=== PATIENT | male | born 1975 | race Hispanic/Latino ===

== ENCOUNTER 2018-04-30 17:17 | Observation (INO) | payer OTHER ==
--- OUTSIDE RECORDS SUMMARY | 2018-04-30 17:20 | XMS REPORT | Clinical Summary ---
:1975 Author Organization [facility] Address [address] [place] [address] Care Team Providers Name Role Phone Jackie Primary Care Provider Allergies No Known Allergies Medications No known medications Active Problems Problem Noted Date Acute hypoxemic respiratory failure 02/18/2016 Social History Tobacco Use Types Packs/Day Years Used Date Never Smoker Sex Assigned at Date Recorded Not on file Job Start Date Occupation Industry Not on file Not on file Not on file Travel History Travel Start Travel End No recent travel history available. Last Filed Vital Signs Not on file Plan of Treatment Not on file Results Not on fileafter 04/29/2017 Insurance Payer Benefit Plan / Group Subscriber ID Type Phone Address [employer] - MEDICARE MGD [employer] GOLD CHOICE xxxxxxxxx Maps Contracted CARE PFFS Advance Directives For more information, please contact:[address] [phone] Code Status Date Activated Date Inactivated Comments Full Code 02/18/2016 9:50 AM 03/03/2016 12:46 PM This code status was determined by: Person holding Power of Closer On Full Code 02/18/2016 8:57 AM 02/18/2016 9:50 AM This code status was determined by: Patient
--- NOTE | 2018-04-30 17:44 | EDPHYS ---
Physician Documentation [facility] Name: Moises Addison Jr Age: 42 yrs Sex: Male : 1975 Arrival Date: 04/30/2018 Time: 17:20 Bed 4 Private MD: Luis Monsalve R ED Physician Domenico Avina HPI: 04/30 17:35 This 42 yrs old Male presents to ER via Unassigned with complaints of Chest radha Pain. 17:35 The patient or guardian reports chest pain that is located primarily in the anterior radha chest wall, right. Onset: today. The pain radiates to Associated signs and symptoms: The patient has no apparent associated signs or symptoms. The chest pain is described as a pressure. Duration: The patient or guardian reports multiple episodes, that wax and wane, with no pattern. Severity of pain: At its worst the pain was mild moderate in the emergency department the pain has improved moderately. The patient has not experienced similar symptoms in the past. Historical: - Allergies: 17:37 No Known Allergies; sg - PMHx: 17:37 Anxiety; Depression; Hypertension; Schizophrenia; Suicide Attempts; sg - Immunization history:: Adult Immunizations up to date. - Social history:: Smoking status: Patient/guardian denies using tobacco. - Family history:: not pertinent. - Ebola Screening: : Patient negative for fever greater than or equal to 101.5 degrees Fahrenheit, and additional compatible Ebola Virus Disease symptoms Patient denies exposure to infectious person Patient denies travel to an Ebola-affected area in the 21 days before illness onset No symptoms or risks identified at this time. ROS: 17:35 Constitutional: Negative for fever, chills, and weight loss, Eyes: Negative for injury, radha pain, redness, and discharge, ENT: Negative for injury, pain, and discharge, Neck: Negative for injury, pain, and swelling, Respiratory: Negative for shortness of breath, cough, wheezing, and pleuritic chest pain, Abdomen/GI: Negative for abdominal pain, nausea, vomiting, diarrhea, and constipation, Back: Negative for injury and pain, : Negative for injury, bleeding, discharge, and swelling, MS/Extremity: Negative for injury and deformity, Skin: Negative for injury, rash, and discoloration, Neuro: Negative for headache, weakness, numbness, tingling, and seizure, Psych: Negative for depression, anxiety, suicide ideation, homicidal ideation, and hallucinations, Allergy/Immunology: Negative for hives, rash, and allergies, Endocrine: Negative for neck swelling, polydipsia, polyuria, polyphagia, and marked weight changes, Hematologic/Lymphatic: Negative for swollen nodes, abnormal bleeding, and unusual bruising. 17:35 Cardiovascular: Positive for chest pain, of the right clavicle and anterior aspect of right upper chest. Exam: 17:35 Constitutional: This is a well developed, well nourished patient who is awake, alert, radha and in no acute distress. Head/Face: Normocephalic, atraumatic. Eyes: Pupils equal round and reactive to light, extra-ocular motions intact. Lids and lashes normal. Conjunctiva and sclera are non-icteric and not injected. Cornea within normal limits. Periorbital areas with no swelling, redness, or edema. ENT: Nares patent. No nasal discharge, no septal abnormalities noted. Tympanic membranes are normal and external auditory canals are clear. Oropharynx with no redness, swelling, or masses, exudates, or evidence of obstruction, uvula midline. Mucous membranes moist. Neck: Trachea midline, no thyromegaly or masses palpated, and no cervical lymphadenopathy. Supple, full range of motion without nuchal rigidity, or vertebral point tenderness. No Meningismus. Chest/axilla: Normal chest wall appearance and motion. Nontender with no deformity. No lesions are appreciated. Respiratory: Lungs have equal breath sounds bilaterally, clear to auscultation and percussion. No rales, rhonchi or wheezes noted. No increased work of breathing, no retractions or nasal flaring. Abdomen/GI: Soft, non-tender, with normal bowel sounds. No distension or tympany. No guarding or rebound. No evidence of tenderness throughout. Back: No spinal tenderness. No costovertebral tenderness. Full range of motion. Male : Normal genitalia with no discharge or lesions. Skin: Warm, dry with normal turgor. Normal color with no rashes, no lesions, and no evidence of cellulitis. MS/ Extremity: Pulses equal, no cyanosis. Neurovascular intact. Full, normal range of motion. Neuro: Awake and alert, GCS 15, oriented to person, place, time, and situation. Cranial nerves II-XII grossly intact. Motor strength 5/5 in all extremities. Sensory grossly intact. Cerebellar exam normal. Normal gait. Psych: Awake, alert, with orientation to person, place and time. Behavior, mood, and affect are within normal limits. 17:35 Cardiovascular: Exam negative for Rate: normal, Rhythm: regular, Pulses: Pulses are 4+ in bilateral radial, brachial, femoral, popliteal, posterior tibial and and dorsalis pedis arteries.. Heart sounds: normal, Edema: is not appreciated, JVD: is not appreciated. Vital Signs: 17:34 BP 149 / 87; Pulse 74; Resp 17; Temp 98.4; Pulse Ox 94% on R/A; Pain 10/10; sg 18:28 BP 149 / 91; Pulse 69; Resp 18; Pulse Ox 94% on R/A; Pain 5/10; ph 19:04 Weight 156.49 kg (R); dh3 19:05 BP 128 / 79; Pulse 60; Resp 18; Pulse Ox 96% on R/A; aj1 20:45 BP 151 / 88; Pulse 63; Resp 18; Pulse Ox 97% on R/A; aj1 MDM: 17:28 Patient medically screened. [facility] 17:40 Data reviewed: vital signs, nurses notes, lab test result(s), EKG, radiologic studies, [facility] CT scan, plain films. 17:40 Patient medically screened. [facility] 04/30 17:35 Order name: Basic Metabolic Panel [facility] 04/30 17:35 Order name: CBC with Diff [facility] 04/30 17:35 Order name: LFT's [facility] 04/30 17:35 Order name: Magnesium [facility] 04/30 17:35 Order name: NT PRO-BNP [facility] 04/30 17:35 Order name: PT-INR [facility] 04/30 17:35 Order name: Troponin (emerg Dept Use Only) [facility] 04/30 17:35 Order name: Lipase [facility] 04/30 18:11 Order name: Protime (+INR); Complete Time: 18:12 [facility] 04/30 18:12 Order name: CBC with Automated Diff; Complete Time: 18:42 [facility] 04/30 18:32 Order name: Urine Dipstick--Ancillary (enter results) 04/30 18:52 Order name: Basic Metabolic Panel; Complete Time: 18:53 [facility] 04/30 18:52 Order name: Liver (Hepatic) Function; Complete Time: 18:53 [facility] 04/30 18:52 Order name: Troponin (Emerg Dept Use Only); Complete Time: 18:53 [facility] 04/30 17:35 Order name: XRAY Chest (1 view) [facility] 04/30 17:35 Order name: EKG; Complete Time: 18:57 [facility] 04/30 17:35 Order name: Cardiac monitoring; Complete Time: 18:24 [facility] 04/30 17:35 Order name: EKG - Nurse/Tech; Complete Time: 18:24 [facility] 04/30 17:35 Order name: IV Saline Lock; Complete Time: 18:24 [facility] 04/30 17:35 Order name: CT Chest For PE Angio [facility] 04/30 18:52 Order name: NT PRO-BNP; Complete Time: 18:53 [facility] 04/30 18:52 Order name: Magnesium; Complete Time: 18:53 [facility] 04/30 18:52 Order name: Lipase; Complete Time: 18:53 [facility] 04/30 19:45 Order name: Urine Dipstick-Ancillary [facility] 04/30 19:46 Order name: CT [facility] 04/30 19:59 Order name: RAD [facility] 04/30 17:35 Order name: Labs collected and sent; Complete Time: 18:24 [facility] 04/30 17:35 Order name: O2 Per Protocol; Complete Time: 18:24 [facility] 04/30 17:35 Order name: O2 Sat Monitoring; Complete Time: 18:24 [facility] 04/30 17:35 Order name: Urine Dipstick-Ancillary (obtain specimen); Complete Time: 18:29 [facility] Administered Medications: 19:46 Drug: Pepcid 20 mg Route: IVP; Site: right antecubital; aj1 21:02 Follow up: Response: No adverse reaction aj1 19:47 Drug: NS 0.9% 1000 ml Route: IV; Rate: 75 ml/hr; Site: right antecubital; aj1 21:04 Follow up: IV Status: Infusion continued upon admission; IV Intake: 100ml aj 19:47 Drug: Aspirin Chewable Tablet 324 mg Route: PO; aj1 21:03 Follow up: Response: No adverse reaction aj1 19:47 Drug: Lovenox 1 mg/kg Route: Sub-Q; Site: left lower abdomen; aj1 21:02 Follow up: Response: No adverse reaction aj1 Disposition: 04/30/18 17:43 Hospitalization ordered by Jamison Wilson for Observation. Preliminary diagnosis are Other chest pain, Essential (primary) hypertension, Obesity, unspecified. - Bed requested for Telemetry/MedSurg (observation). - Status is Observation. aj1 - Condition is Fair. - Problem is new. - Symptoms have improved. UTI on Admission? No Signatures: Dispatcher [employer] EDMS Kirstie Marques Angela, RN RN aj1 Dominguez Lantigua RN RN sg Anderson, Corey, MD MD cha Corrections: (The following items were deleted from the chart) 18:59 17:43 Hospitalization Ordered by Jamison Wilson DO for Observation. Preliminary bd diagnosis is Other chest pain; Essential (primary) hypertension; Obesity, unspecified. Bed requested for Telemetry/MedSurg (observation). Status is Observation. Condition is Fair. Problem is new. Symptoms have improved. UTI on Admission? No. radha 21:06 18:59 04/30/2018 17:43 Hospitalization Ordered by Jamison Wilson DO for Observation. aj1 Preliminary diagnosis is Other chest pain; Essential (primary) hypertension; Obesity, unspecified. Bed requested for Telemetry/MedSurg (observation). Status is Observation. Condition is Fair. Problem is new. Symptoms have improved. UTI on Admission? No. bd
--- NOTE | 2018-04-30 17:44 | ER ---
Nurse's Notes [facility] Name: Moises Addison Jr Age: 42 yrs Sex: Male : 1975 Arrival Date: 04/30/2018 Time: 17:20 Bed 4 Private MD: Luis Monsalve R Diagnosis: Other chest pain;Essential (primary) hypertension;Obesity, unspecified Presentation: 04/30 17:35 Presenting complaint: Patient states: Midsternal CP and Right anterior chest wall pain sg that began on Wednesday, had improved but this morning the pain had returned, pt reports he was just sitting in the chair and the pain began, pt reports nausea on Wednesday but no nausea today. Transition of care: patient was not received from another setting of care. Onset of symptoms was April 30, 2018. Risk Assessment: Do you want to hurt yourself or someone else? Patient reports no desire to harm self or others. Initial Sepsis Screen: Does the patient meet any 2 criteria? No. Patient's initial sepsis screen is negative. Does the patient have a suspected source of infection? No. Patient's initial sepsis screen is negative. Care prior to arrival: None. 17:35 Method Of Arrival: Ambulatory sg 17:35 Acuity: ERIN 3 sg Historical: - Allergies: 17:37 No Known Allergies; sg - PMHx: 17:37 Anxiety; Depression; Hypertension; Schizophrenia; Suicide Attempts; sg - Immunization history:: Adult Immunizations up to date. - Social history:: Smoking status: Patient/guardian denies using tobacco. - Family history:: not pertinent. - Ebola Screening: : Patient negative for fever greater than or equal to 101.5 degrees Fahrenheit, and additional compatible Ebola Virus Disease symptoms Patient denies exposure to infectious person Patient denies travel to an Ebola-affected area in the 21 days before illness onset No symptoms or risks identified at this time. Screenin:56 Abuse screen: Denies threats or abuse. Denies injuries from another. Nutritional hb screening: No deficits noted. Tuberculosis screening: No symptoms or risk factors identified. Fall Risk None identified. Assessment: 18:00 General: Appears in no apparent distress. comfortable, obese, well groomed, Behavior is ph calm, cooperative, appropriate for age, Denies fever, feeling ill. Pain: Complains of pain in anterior aspect of right upper chest Pain does not radiate. Pain currently is 5 out of 10 on a pain scale. Quality of pain is described as sharp, Pain began 2-3 days ago. Neuro: Level of Consciousness is awake, alert, obeys commands, Oriented to. Cardiovascular: Reports chest pain, Denies fatigue, lightheadedness, nausea, palpitations, shortness of breath, Capillary refill < 3 seconds in bilateral fingers Patient's skin is warm and dry. Respiratory: Airway is patent Respiratory effort is even, unlabored, Respiratory pattern is regular, symmetrical. GI: No signs and/or symptoms were reported involving the gastrointestinal system. Derm: Skin is intact, is healthy with good turgor, Skin is pink, warm \T\ dry. 18:10 Reassessment: Patient appears in no apparent distress at this time. No changes from aj1 previously documented assessment. Patient and/or family updated on plan of care and expected duration. Pain level reassessed. Patient is alert, oriented x 3, equal unlabored respirations, skin warm/dry/pink. 19:05 Reassessment: Patient appears in no apparent distress at this time. No changes from aj1 previously documented assessment. Patient and/or family updated on plan of care and expected duration. Pain level reassessed. Patient is alert, oriented x 3, equal unlabored respirations, skin warm/dry/pink. Vital Signs: 17:34 BP 149 / 87; Pulse 74; Resp 17; Temp 98.4; Pulse Ox 94% on R/A; Pain 10/10; sg 18:28 BP 149 / 91; Pulse 69; Resp 18; Pulse Ox 94% on R/A; Pain 5/10; ph 19:04 Weight 156.49 kg (R); dh3 19:05 BP 128 / 79; Pulse 60; Resp 18; Pulse Ox 96% on R/A; aj1 20:45 BP 151 / 88; Pulse 63; Resp 18; Pulse Ox 97% on R/A; aj1 Vitals: 18:29 Cardiac Rhythm Assessment Sinus rhythm. ED Course: 17:20 Patient arrived in ED. sb2 17:21 Luis Monsalve MD is Private Physician. sb2 17:27 Alysia Grant RN is Primary Nurse. ph 17:28 Domenico Avina MD is Attending Physician. radha 17:34 Arm band placed on. sg 17:36 Triage completed. sg 17:42 Jamison Wilson DO is Hospitalizing Provider. [facility] 17:44 Inserted saline lock: 20 gauge in right antecubital area, using aseptic technique. hb Blood collected. 17:44 Patient maintains SpO2 saturation greater than 95% on room air. hb 17:56 Patient has correct armband on for positive identification. Placed in gown. Bed in low hb position. Call light in reach. Side rails up X 1. monitoring engineer on. Pulse ox on. NIBP on. 19:41 X-ray completed. Portable x-ray completed in exam room. Patient tolerated procedure tm4 well. 20:44 Report given to FLAVIA Betancur. aj1 20:46 No provider procedures requiring assistance completed. Patient admitted, IV remains in aj1 place. Administered Medications: 19:46 Drug: Pepcid 20 mg Route: IVP; Site: right antecubital; aj1 21:02 Follow up: Response: No adverse reaction [facility] 19:47 Drug: NS 0.9% 1000 ml Route: IV; Rate: 75 ml/hr; Site: right antecubital; aj1 21:04 Follow up: IV Status: Infusion continued upon admission; IV Intake: 100ml aj 19:47 Drug: Aspirin Chewable Tablet 324 mg Route: PO; aj1 21:03 Follow up: Response: No adverse reaction aj1 19:47 Drug: Lovenox 1 mg/kg Route: Sub-Q; Site: left lower abdomen; aj1 21:02 Follow up: Response: No adverse reaction aj Intake: 21:04 IV: 100ml; Total: 100ml. aj1 Outcome: 17:43 Decision to Hospitalize by Provider. [facility] 21:01 Admitted to Tele accompanied by nurse, via wheelchair. aj1 21:01 Condition: good 21:01 Discharge instructions given to patient, Instructed on the need for admit, Demonstrated understanding of instructions. 21:06 Patient left the ED. aj1 Signatures: Sultana Aparicio, RN RN aj1 Dominguez Lantigua RN RN Domenico Maria MD MD cha Marroquin, Tracy tm4 Alysia Grant RN RN Gabrielle Richard RN RN Sada Agudelo 3 Suzi Martinez 2
[2018-04-30 18:06] LABS: Protime INR 1.05
[2018-04-30 18:07] LABS: Absolute Lymphocytes (CBC) 1.8 K/uL (0.7-4.9); Absolute Monocytes 0.6 K/uL (0.1-1.3); Absolute Neutrophil 4.3 K/uL (1.8-8.0); Basophils % 0.9 % (0-1.3); Eosinophils % 4.4 % (0-4.4); Hematocrit 43.3 % (39.6-49.0); MCH 30.1 pg (27.0-35.0); MPV 6.9 fL (7.6-11.3); RBC Red Blood Cell Count 4.98 M/uL (4.33-5.43)
[2018-04-30] MEDS ORDERED: BENZTROPINE 1 MG TAB PO PRN (18:09)
[2018-04-30] MEDS ORDERED: ACETAMINOPHEN 500 MG TAB PO PRN (18:09)
[2018-04-30] MEDS ORDERED: ONDANSETRON 4 MG/2 ML VIAL IV PRN (18:09)
[2018-04-30] MEDS ORDERED: MORPHINE 2 MG/ML SYR IV PRN (18:09)
[2018-04-30] MEDS ORDERED: TRAMADOL HCL 50 MG TAB PO PRN (18:15)
--- NOTE | 2018-04-30 18:23 | P.HP ---
Certification for Inpatient Patient admitted to: Observation With expected LOS: <2 Midnights Patient will require the following post-hospital care: None Practitioner: I am a practitioner with admitting privileges, knowledge of patient current condition, hospital course, and medical plan of care. Services: Services provided to patient in accordance with Admission requirements found in Title 42 Section 412.3 of the Code of Federal Regulations Patient History Date of Service: 04/30/18 Primary Care Provider: Dr. Garcia; [facility] Reason for admission: Chest pain History of Present Illness: 42-year-old male presented to the emergency room with chest pain. Patient reported chest pain starting on Wednesday. It was mainly to the sternal region. It is a sharp pain. He denies any significant nausea, vomiting , palpitations. Chest pain would come and go. He continued to have chest pain and came to the ER for further evaluation. Patient with history of hypertension , hyperlipidemia, schizophrenia, depression. In the ER patient evaluated. No significant EKG changes noted. Lab reviewed. Patient admitted for observation to further assess. When I saw the patient ER, he is without any significant pain. No significant nausea or vomiting. He does not smoke or drink alcohol. Patient compliant with medication. Blood pressure elevated in the emergency room. Patient does not check his blood pressures regularly. Allergies No Allergy Information Melanie Allergy (Uncoded 10/21/16 16:33) Unknown Home medications list reviewed: Yes Home Medications: Benztropine Mesylate [Cogentin] 2 mg PO BID 03/11/12 Carbamazepine [Tegretol] 400 mg PO BID 03/11/12 Olanzapine [Zyprexa] 10 mg PO DAILY 03/11/12 Lisinopril 10 mg PO DAILY 08/18/16 OLANZapine [Zyprexa] 20 mg PO BEDTIME 08/18/16 Sertraline [Zoloft*] 150 mg PO DAILY 08/18/16 Codeine/APAP [Tylenol #3*] 1 tab PO Q6HP PRN 10/22/16 Guaifen W/Codeine Syrup [ROBITUSSIN A-C Syrup] 10 ml PO BID PRN #150 ml levoFLOXacin [Levaquin*] 500 mg PO 1700 #7 tab 10/23/16 predniSONE [Deltasone] 20 mg PO DAILY #5 tab 10/23/16 - Past Medical/Surgical History Diabetic: No -: Depression with anxiety -: Schizophrenia with paranoia -: Hypertension -: History of suicide attempt -: Obstructive sleep apnea -: Hyperlipidemia -: Cyst removed from right arm Psychosocial/ Personal History: The patient lives by himself. - Family History Father -: Cancer, Kidney disease Notes: cancer stomach - Social History Smoking Status: Never smoker Alcohol use: No CD- Drugs: No Caffeine use: Yes Place of Residence: Home Review of Systems General: As per HPI Eyes: Unremarkable ENT: Unremarkable Respiratory: Unremarkable Cardiovascular: Chest Pain, As per HPI Gastrointestinal: Unremarkable Genitourinary: Unremarkable Musculoskeletal: Unremarkable Integumentary: Unremarkable Neurological: Unremarkable Lymphatics: Unremarkable Physical Examination - Physical Exam General: Alert, In no apparent distress, Oriented x3, Cooperative HEENT: Atraumatic, Normocephalic, PERRLA, Mucous membr. moist/pink Neck: Supple, No Thyromegaly Respiratory: Clear to auscultation bilaterally, Normal air movement Cardiovascular: Normal pulses, Regular rate/rhythm Gastrointestinal: Normal bowel sounds, Soft and benign, Non-distended, No tenderness, No masses, No rebound, No guarding Musculoskeletal: No contractures, No erythema, No tenderness, No warmth Integumentary: No tenderness/swelling, No erythema, No warmth, No cyanosis Neurological: Normal speech, Normal strength at 5/5 x4 extr, Normal tone, Normal affect Lymphatics: No axilla or inguinal lymphadenopathy Assessment and Plan - Plan Impression: Chest pain, atypical Hypertension, uncontrolled Hyperlipidemia Schizophrenia with paranoia Depression with anxiety Obesity Plan: Chest pain, atypical: Will admit for observation to further evaluate. Will monitor for telemetry and cardiac enzymes. Will consult cardiology to further evaluate. Await recommendations. Anticipate possible discharge tomorrow if cardiac workup/enzymes unremarkable. Will consider cardiac outpatient stress tests an echocardiogram. Will need to get blood pressure better controlled. Will increase blood pressure medication. Will provide Protonix as pain maybe GERD related. Hypertension, uncontrolled: Will increase lisinopril to 10 mg 1 pill twice daily. Will monitor and adjust appropriately. Echocardiogram in 2017 unremarkable. Hyperlipidemia: Will check fasting lipid panel. Will continue with Lipitor 20 mg daily Schizophrenia with paranoia: Will continue with his medication of Zyprexa, Tegretol and Zoloft. Depression with anxiety: Will continue with his medication. Obesity: Will calculate BMI. Will address lifestyle modification education. Discharge Plan: Home Plan to discharge in: 24 Hours - Advance Directives Does patient have a Living Will: No Does patient have a Durable POA for Healthcare: No - Code Status/Comfort Care Code Status Assessed: Yes (Patient full code.) Time Spent Managing Pts Care (In Minutes): 55
[2018-04-30 18:52] LABS: ALT/SGPT 35 U/L (12-78); AST/SGOT 24 U/L (15-37); Albumin 3.5 g/dL (3.4-5.0); Alkaline Phosphatase 105 U/L (45-117); BUN Blood Urea Nitrogen 10 mg/dL (7-18); Bicarbonate 28 mmol/L (21-32); Bilirubin Direct < 0.1 mg/dL (0-0.2); Bilirubin Total 0.2 mg/dL (0.2-1.0); Glucose Level 104 mg/dL (74-106); Lipase 133 U/L (73-393); Magnesium 2.3 mg/dL (1.8-2.4); NT PRO-BNP 17 pg/mL (<125); Potassium 4.4 mmol/L (3.5-5.1); Protein, Total 7.3 g/dL (6.4-8.2); Sodium Level 134 mmol/L (136-145); Troponin (Emerg Dept Use Only) < 0.02 ng/mL (0.0-0.045)
[2018-04-30] MEDS ORDERED: OLANZapine 10 MG TABLET PO SCH ×2 (19:00→21:00)
[2018-04-30 19:18] LABS: Urine Blood NEGATIVE (NEG); Urine Glucose NEGATIVE (NEG); Urine Protein 1+ (NEG); Urine Specific Gravity 1.015 (1.005-1.030)
[2018-04-30] MEDS ORDERED: ENOXAPARIN 100 MG/ML SYR SQ ONE (19:19)
[2018-04-30] MEDS ORDERED: ASPIRIN 81 MG CHEWABLE TABLET ONE (19:19)
[2018-04-30] MEDS ORDERED: NA CHLORIDE 0.9% 1,000 ML ONE (19:20)
[2018-04-30] MEDS ORDERED: FAMOTIDINE 20 MG/2 ML VIAL IV ONE (19:20)
--- NOTE | 2018-04-30 19:39 | RAD REPORT ---
EXAM DESCRIPTION: CT - Chest For Pe Angio - 04/30/2018 7:30 pm CLINICAL HISTORY: Chest pain. CHEST PAIN COMPARISON: Chest For Pe Angio dated 10/21/2016 TECHNIQUE: CT angiogram of the pulmonary arteries was performed with MIP. All CT scans are performed using dose optimization technique as appropriate and may include automated exposure control or mA/KV adjustment according to patient size. FINDINGS: No evidence of pulmonary thromboembolism. No acute aortic finding demonstrated. Mild interstitial pulmonary edema. No significant pericardial or pleural fluid. No concerning bony finding. IMPRESSION: No evidence of pulmonary thromboembolism. Mild interstitial pulmonary edema.
--- NOTE | 2018-04-30 19:58 | RAD REPORT ---
EXAM DESCRIPTION: RAD - Chest Single View - 04/30/2018 7:46 pm CLINICAL HISTORY: CHEST PAIN Chest pain. COMPARISON: Chest Single View dated 10/21/2016; Chest Pa And Lat (2 Views) dated 08/21/2016; Chest Sin gle View dated 08/20/2016; Chest Single View dated 08/19/2016 FINDINGS: Portable technique limits examination quality. The lungs are grossly clear. The heart is upper limit of normal in size. No displaced fractures. IMPRESSION: No acute intrathoracic process suspected.
[2018-04-30 21:22] VITALS: BMI 54.0
[2018-04-30] MEDS: ATORVASTATIN 20 MG TAB PO SCH (21:50)
[2018-04-30] MEDS: LISINOPRIL 10 MG TAB PO SCH (21:50)
[2018-04-30] MEDS: CARBAMAZEPINE 200 MG TAB PO SCH (21:50)
[2018-04-30 22:22] LABS: Thyroid Stimulating Hormone 0.876 uIU/mL (0.360-3.740)
[2018-04-30 23:14] LABS: Urine Appearance CLEAR; Urine Bilirubin NEGATIVE (NEG); Urine Blood NEGATIVE (NEG); Urine Color YELLOW; Urine Glucose NEGATIVE (NEG); Urine Protein NEGATIVE (NEG); Urine Specific Gravity >=1.030 (1.005-1.030); Urine Urobilinogen 0.2 mg/dL (0.2-1.0)
[2018-04-30 23:45] LABS: Urine Microscopic Reflex NO UMIC
[2018-04-30 23:46] LABS: CKMB Creatine Kinase MB 1.4 ng/mL (0.3-3.6); Creatine Phosphokinase 68 U/L (39-308); Troponin I < 0.02 ng/mL (0.0-0.045)
[2018-05-01 05:48] LABS: Absolute Lymphocytes (CBC) 1.9 K/uL (0.7-4.9); Absolute Monocytes 0.6 K/uL (0.1-1.3); Absolute Neutrophil 4.4 K/uL (1.8-8.0); Basophils % 0.9 % (0-1.3); Eosinophils % 4.5 % (0-4.4); Hematocrit 41.7 % (39.6-49.0); Lymphocytes % 25.7 % (15.3-44.8); MCH 30.5 pg (27.0-35.0); MPV 6.9 fL (7.6-11.3); RBC Red Blood Cell Count 4.79 M/uL (4.33-5.43)
[2018-05-01] MEDS: PANTOPRAZOLE 40MG TABLET PO SCH (05:56)
[2018-05-01 06:01] LABS: BUN Blood Urea Nitrogen 8 mg/dL (7-18); Bicarbonate 30 mmol/L (21-32); Glucose Level 87 mg/dL (74-106); HDL Cholesterol 36 mg/dL (40-60); LDL Cholesterol, Calculated 87 (<130); Magnesium 2.4 mg/dL (1.8-2.4); Potassium 4.5 mmol/L (3.5-5.1); Sodium Level 131 mmol/L (136-145)
--- NOTE | 2018-05-01 06:17 | EKG ---
Test Date: 2018-04-30 Test Time: 17:41:03 Hr Internship: HB MEASUREMENT RESULTS: Intervals: Rate: 68 VT: 172 QRSD: 90 QT: 378 QTc: 401 [place]: P: 44 VT: 172 QRS: -4 T: 53 INTERPRETIVE STATEMENTS: Normal sinus rhythm Possible Left atrial enlargement Borderline ECG Compared to ECG 10/21/2016 10:23:39 No significant changes Electronically Signed On 05-01-18 06:16:19 CHECK EXAMINER by uLis Sanchez
[2018-05-01 07:37] LABS: CKMB Creatine Kinase MB < 1.0 ng/mL (0.3-3.6); Creatine Phosphokinase 65 U/L (39-308); Troponin I < 0.02 ng/mL (0.0-0.045)
[2018-05-01] MEDS ORDERED: OLANZapine 10 MG TABLET PO SCH (09:00)
[2018-05-01] MEDS: ENOXAPARIN 40 MG/0.4 ML SQ SCH (09:23)
[2018-05-01] MEDS: LISINOPRIL 10 MG TAB PO SCH (09:23)
[2018-05-01] MEDS: ASPIRIN EC 81 MG TAB PO SCH (09:23)
[2018-05-01] MEDS: CARBAMAZEPINE 200 MG TAB PO SCH ×2 (09:24→21:03)
[2018-05-01] MEDS: SERTRALINE HCL 100 MG TAB PO SCH (09:25)
--- NOTE | 2018-05-01 14:25 | P.PN ---
Subjective Date of Service: 05/01/18 Primary Care Provider: Dr. Garcia; [facility] Chief Complaint: Chest pain Subjective: Doing well (Still reports some chest pain at times.) Physical Examination - Vital Signs Temperature: 97.6 F Blood Pressure: 150/85 Pulse: 59 Respirations: 18 Pulse Ox (%): 93 - Physical Exam General: Alert, In no apparent distress, Oriented x3, Cooperative HEENT: Atraumatic Neck: Supple Respiratory: Clear to auscultation bilaterally, Normal air movement Cardiovascular: Normal pulses, Regular rate/rhythm Gastrointestinal: Normal bowel sounds, Soft and benign, Non-distended, No tenderness, No masses, No rebound, No guarding Musculoskeletal: No erythema, No tenderness, No warmth Integumentary: No tenderness/swelling, No erythema, No warmth, No cyanosis Neurological: Normal speech, Normal strength at 5/5 x4 extr, Normal tone, Normal affect - Studies Laboratory Data (last 24 hrs) 04/30/18 17:35: PT Cancelled, INR Cancelled 04/30/18 17:35: WBC Cancelled, Hgb Cancelled, Hct Cancelled, Plt Count Cancelled 04/30/18 17:35: Sodium Cancelled, Potassium Cancelled, BUN Cancelled, Creatinine Cancelled, Glucose Cancelled, Magnesium Cancelled, Total Bilirubin Cancelled, AST Cancelled, ALT Cancelled, Alkaline Phosphatase Cancelled, Lipase Cancelled Medications List Reviewed: Yes Assessment & Plan Discharge Plan: Home Plan to discharge in: 24 Hours Physician Review Additional Text: Impression: Chest pain, atypical Hypertension, uncontrolled Hyperlipidemia Schizophrenia with paranoia Depression with anxiety Obesity, BMI 54 Suspect obstructive sleep apnea GERD Plan: Chest pain, atypical: So far cardiac enzymes unremarkable. Cardiology evaluated patient. Cardiology recommends cardiac stress test and echocardiogram inpatient. This will be done tomorrow. Will adjust blood pressure medication for better control. Anticipate discharge tomorrow if stress test and echocardiogram unremarkable. I will turn the service over to Dr. Alba tomorrow. I will go over the plan of care with her. Hypertension, uncontrolled: Will increase lisinopril to 20 mg 1 pill twice daily for better control. Will monitor and adjust appropriately. Echocardiogram in 2017 unremarkable. Hyperlipidemia: Will continue with Lipitor 20 mg daily Schizophrenia with paranoia: Will continue with his medication of Zyprexa, Tegretol and Zoloft. Patient seen by [facility]psych as an outpatient. Depression with anxiety: Will continue with his medication. Obesity: BMI 54. Will continue to address lifestyle modification education. GERD: Suspect GERD. Will start Protonix 40 mg 1 pill once daily. Suspect obstructive sleep apnea: Will recommend sleep study to be done as an outpatient to further evaluate and treat. Time Spent Managing Pts Care (In Minutes): 55
--- NOTE | 2018-05-01 16:15 | CON ---
History Of Present Illness: Mr. Addison is 42. He has been having chest pain for about a month. He describes it as intermittent, not related to exertion, not related to any activities. He can think a body position. He cannot think of anything that helps it go away. Most spells lasts 3 or 4 minutes . Although if he thinks about it, he can notice that there is some pain nearly constantly over the l ast month. Mr. Addison has never had a heart attack or stroke. He has had a few tests done on his he art and echocardiogram. Never had a heart cath or a stent. He takes medicines for high blood pressu re, dyslipidemia, and he takes a seizure medicine. Medications: Outpatient medications are Tegretol 400 b.i.d., lisinopril, Zyprexa, sertraline, atorva statin, benztropine, and cholecalciferol. Allergies: HE HAS NO DRUG ALLERGIES. Social History: He uses no tobacco. Physical Examination: General: 5 feet 7 inches, 345 pounds. Alert, oriented, pleasant, not in distress. Lungs: Clear. Heart: Within normal limits. Impression: Troponins are all less than 0.02. His electrocardiogram is normal except for left atria l enlargement. I will ask him to undergo a nuclear stress test and echocardiogram. If those are normal, we can discharge him with confidence that he does not have significant coronary artery disejamie HODGES Voice ID: [id number] Report ID: [id number]
[2018-05-01] MEDS: LISINOPRIL 20 MG TAB PO SCH (21:03)
[2018-05-01] MEDS: ATORVASTATIN 20 MG TAB PO SCH (21:03)
[2018-05-01] MEDS: NITROGLYCERIN 0.4 MG/TAB SL PRN ×2 (21:05→21:15)
[2018-05-02 06:08] LABS: Absolute Lymphocytes (CBC) 1.7 K/uL (0.7-4.9); Absolute Monocytes 0.5 K/uL (0.1-1.3); Absolute Neutrophil 3.7 K/uL (1.8-8.0); Basophils % 0.8 % (0-1.3); Eosinophils % 5.8 % (0-4.4); Hematocrit 41.2 % (39.6-49.0); Lymphocytes % 27.5 % (15.3-44.8); MCH 30.6 pg (27.0-35.0); MCV 86.7 fL (80-100); MPV 7.1 fL (7.6-11.3); Monocytes % 7.5 % (3.3-12.3); RBC Red Blood Cell Count 4.75 M/uL (4.33-5.43)
[2018-05-02 06:22] LABS: BUN Blood Urea Nitrogen 9 mg/dL (7-18); Bicarbonate 31 mmol/L (21-32); Glucose Level 93 mg/dL (74-106); Magnesium 2.2 mg/dL (1.8-2.4); Potassium 4.7 mmol/L (3.5-5.1); Sodium Level 127 mmol/L (136-145)
[2018-05-02] MEDS ORDERED: LISINOPRIL 10 MG TAB PO SCH (09:00)
[2018-05-02] MEDS ORDERED: DRISDOL (VITAMIN D=ERGOCALCIFEROL) 50000 UNIT CAP PO SCH (09:00)
[2018-05-02] MEDS ORDERED: REGADENOSON 0.4 MG/5 ML SYR IV ONE (09:23)
[2018-05-02] MEDS: ENOXAPARIN 40 MG/0.4 ML SQ SCH (10:02)
[2018-05-02] MEDS: ASPIRIN EC 81 MG TAB PO SCH (10:02)
[2018-05-02] MEDS: SERTRALINE HCL 100 MG TAB PO SCH (10:03)
[2018-05-02] MEDS: CARBAMAZEPINE 200 MG TAB PO SCH (10:03)
[2018-05-02] MEDS: LISINOPRIL 20 MG TAB PO SCH (10:03)
[2018-05-02] MEDS: PANTOPRAZOLE 40MG TABLET PO SCH (10:04)
--- NOTE | 2018-05-02 14:12 | RAD REPORT ---
EXAM DESCRIPTION: NM - Rest Stress Cardiac Imaging - 05/02/2018 2:03 pm CLINICAL HISTORY: CP Chest pain. COMPARISON: No comparisons TECHNIQUE: The patient was administered approximately 10mCi of Tc 99m Sestamibi prior to resting SPE CT imaging of the heart. The patient was then administered approximately 30 mCi of Tc 99m Sestamibi f ollowing exercise or pharmacologic stress. Multiplanar SPECT images were reviewed. FINDINGS: No stress induced ischemic defect is seen to suggest stress induced ischemia. No fixed def ect is seen to suggest hibernating myocardium or scarred myocardium. The end diastolic volume is 147 ml, the end systolic volume is 67 ml, and the ejection fraction is 55 %. IMPRESSION: No stress induced ischemia.
--- NOTE | 2018-05-02 15:16 | ECHO ---
HEIGHT: 5 ft 7 in WEIGHT: 345 lb 2 oz DATE OF STUDY: 05/02/[address]: 2-DIMENSIONAL: YES M.MODE: YES DOPPLER: YES COLOR FLOW: YES TDS: YES PORTABLE: NO DEFINITY: NO BUBBLE STUDY: NO DIAGNOSIS: CHEST PAIN/ HYPERTENSION CARDIAC HISTORY: CATHERIZATION: NO SURGERY: NO PROSTHETIC VALVE: NO PACEMAKER: NO MEASUREMENTS (cm) DIASTOLIC (NORMALS) SYSTOLIC (NORMALS) IVSd 1.2 (0.6-1.2) LA Diam 3.5 (1.9-4.0) LVEF 52% LVIDd 4.7 (3.5-5.7) LVIDs 3.4 (2.0-3.5) %FS 27% LVPWd 1.1 (0.6-1.2) Ao Diam 3.8 (2.0-3.7) 2 DIMENSIONAL ASSESSMENT: RIGHT ATRIUM: NORMAL LEFT ATRIUM: NORMAL RIGHT VENTRICLE: NORMAL LEFT VENTRICLE: NORMAL TRICUSPID VALVE: NORMAL MITRAL VALVE: NORMAL PULMONIC VALVE: NORMAL AORTIC VALVE: NORMAL PERICARDIAL EFFUSION: NONE AORTIC ROOT: NORMAL LEFT VENTRICULAR WALL MOTION: NORMAL DOPPLER/COLOR FLOW: NORMAL COMMENTS: NORMAL 2D ECHOCARDIOGRAM WITH DOPPLER TECHNOLOGIST: ANUEL GUPTA RDCS
--- NOTE | 2018-05-02 16:40 | TREADPHA ---
DX: CHEST PAIN Date of Study: 05/02/2018 Ht: 5 7 Wt: 345 lb 2 oz Consulting Physician: DR. ARTEAGA MEDICATIONS: TYLENOL, ASPIRIN, LIPITOR, COGENTIN, LOVENOX, PRINIVIL HISTORY: 42 YEAR OLD MALE WITH COMPLAINTS OF CHEST PAIN, HYPERTENSION. HISTORY OF ANXIETY, DEPRESSION, HYPERTENSION, SCHIZOPHRENIA, SUICIDE ATTEMPTS. NON-SMOKER PHYSICIAL EXAMINATION: RESTING B.P.: 145/86 RESTING H.R.: 62 RESTING EKG: NORMAL PROTOCOL: LEXISCAN EXERCISE TIME: 3:30 B.P. AT PEAK STRESS: 138/80 IMPRESSION: LEXISCAN INJECTED PER PROTOCOL, FOLLOWED BY CARDIOLITE INJECTION PER PROTOCOL. SEE NUCLEAR MEDICINE CHART. NO SUPRAVENTRICULAR TACHYCARDIA, NO VENTRICULAR TACHYCARDIA, NO PREMATURE ATRIAL COMPLEXES, NO PREMATURE VENTRICULAR COMPLEXES. PATIENT REPORTED RIGHT CHEST PAIN 10/10 PRIOR TO TEST. DURING STRESS TEST PATIENT REPORT CHEST PAIN 4/10. NON-DIAGNOSTIC EXERCISE LEXISCAN STUDY.
--- NOTE | 2018-05-02 17:02 | P.DS ---
Admission Date: 04/30/18 Discharge Date: 05/02/18 Primary Care Provider: Dr. Garcia; [facility] Disposition: ROUTINE DISCHARGE Discharge Condition: GOOD Reason for Admission: Chest pain Consultations: Cardiology - Problems (1) Chest pain, atypical Onset Date: 05/02/18 Current Visit: Yes Status: Acute (2) Depression with anxiety Onset Date: 05/02/18 Current Visit: Yes Status: Acute (3) Hyperlipidemia Onset Date: 05/02/18 Current Visit: Yes Status: Acute (4) Hypertension, uncontrolled Onset Date: 05/02/18 Current Visit: Yes Status: Acute Brief History of Present Illness: 42-year-old male presented to the emergency room with chest pain. Patient reported chest pain starting on Wednesday. It was mainly to the sternal region. It is a sharp pain. He denies any significant nausea, vomiting , palpitations. Chest pain would come and go. He continued to have chest pain and came to the ER for further evaluation. Patient with history of hypertension , hyperlipidemia, schizophrenia, depression. In the ER patient evaluated. No significant EKG changes noted. Lab reviewed. Patient admitted for observation to further assess. When I saw the patient ER, he is without any significant pain. No significant nausea or vomiting. He does not smoke or drink alcohol. Patient compliant with medication. Blood pressure elevated in the emergency room. Patient does not check his blood pressures regularly. Hospital Course: Overall during the hospital stay patient remained stable Patient was initially admitted to the hospital for chest pain ACS rule out. Troponins 2 was negative while here in the hospital. Cardiology was consulted who recommended the patient get a stress test and echocardiogram done here in the hospital. Stress test and echocardiogram was done which was both within with normal limits. No acute ischemia or no acute cardiac event was noted. Patient then was discharged home under stable condition. Patient did have elevated blood pressure while here in the hospital this is lisinopril was increased to 20 mg b.i.d. instead of 10 mg b.i.d.. Patient was asked to follow up with primary care provider in about 1-2 days post discharge. Patient then was discharged home under stable condition Vital Signs/Physical Exam: Temp Pulse Resp BP Pulse Ox 97.5 F 58 20 140/91 H 92 05/02/18 12:00 05/02/18 12:00 05/02/18 12:00 05/02/18 12:00 05/02/18 12:00 General: Alert, In no apparent distress HEENT: Atraumatic, PERRLA, EOMI Neck: Supple, JVD not distended Respiratory: Clear to auscultation bilaterally, Normal air movement Cardiovascular: Regular rate/rhythm, Normal S1 S2 Gastrointestinal: Normal bowel sounds, No tenderness Musculoskeletal: No tenderness Integumentary: No rashes Neurological: Normal speech, Normal tone, Normal affect Lymphatics: No axilla or inguinal lymphadenopathy Laboratory Data at Discharge: WBC 6.3 K/uL (4.3-10.9) 05/02/18 05:30 Hgb 14.5 g/dL (13.6-17.9) 05/02/18 05:30 Hct 41.2 % (39.6-49.0) 05/02/18 05:30 Plt Count 257 K/uL (152-406) 05/02/18 05:30 PT 12.4 SECONDS (9.5-12.5) 04/30/18 17:48 INR 1.05 04/30/18 17:48 Sodium 127 mmol/L (136-145) L 05/02/18 05:50 Potassium 4.7 mmol/L (3.5-5.1) 05/02/18 05:50 BUN 9 mg/dL (7-18) 05/02/18 05:50 Creatinine 0.50 mg/dL (0.55-1.3) L 05/02/18 05:50 Glucose 93 mg/dL (74-106) 05/02/18 05:50 Magnesium 2.2 mg/dL (1.8-2.4) 05/02/18 05:50 Total Bilirubin 0.2 mg/dL (0.2-1.0) 04/30/18 17:48 AST 24 U/L (15-37) 04/30/18 17:48 ALT 35 U/L (12-78) 04/30/18 17:48 Alkaline Phosphatase 105 U/L (45-117) 04/30/18 17:48 Troponin I < 0.02 ng/mL (0.0-0.045) 05/01/18 07:10 Triglycerides 107 mg/dL (<150) 05/01/18 04:59 Cholesterol 144 mg/dL (<200) 05/01/18 04:59 HDL Cholesterol 36 mg/dL (40-60) L 05/01/18 04:59 Cholesterol/HDL Ratio 4.00 05/01/18 04:59 Lipase 133 U/L (73-393) 04/30/18 17:48 Home Medications: Atorvastatin Calcium [Lipitor*] 20 mg PO BEDTIME 04/30/18 Benztropine Mesylate [Cogentin] 1 tab BID PRN 04/30/18 Carbamazepine [Tegretol*] 400 mg BID 04/30/18 Cholecalciferol (Vitamin D3) [Decara] 1 cap PO EVERY 7TH DAY 04/30/18 OLANZapine [Zyprexa] 10 mg PO DAILY 04/30/18 OLANZapine [Zyprexa] 20 mg PO BEDTIME 04/30/18 Sertraline [Zoloft*] 1.5 tab DAILY 04/30/18 Lisinopril [Prinivil*] 20 mg PO BID #60 tab 05/02/18 New Medications: Lisinopril [Prinivil*] 20 mg PO BID #60 tab Diet: Regular Activity: Ad ezio Followup: Luis Sanchez MD [ACTIVE - CAN ADMIT] - 1 Week Pilo Monsalve MD [Primary Care Provider] - 1 Week
[2018-05-02 17:33] VITALS: O2SAT 93
[2018-05-02 18:29] VITALS: BP 140/89; TEMP 97.6
[2018-05-08] MEDS ORDERED: CHOLECALCIFEROL PO SCH (09:00)
== END 2018-05-02 18:28 | disposition home or self-care (01) ==
LOC: ER 17:17 → ERHOLD 17:45 → 2ND 20:43
PROVIDERS: ADMIT Family Medicine; ATTEND Family Medicine
DX: R07.89 Other chest pain (principal); F41.8 Other specified anxiety disorders; E78.5 Hyperlipidemia, unspecified; I10 Essential (primary) hypertension; E66.9 Obesity, unspecified; Z68.43 Body mass index [BMI] 50.0-59.9, adult; F20.9 Schizophrenia, unspecified
CPT/HCPCS: 36415 ×2; 71045; 71275; 78452; 80048 ×3; 80061; 80076; 81003 ×2; 82550 ×2; 82553 ×2; 83690; 83735 ×3; 83880; 84439; 84443; 84484 ×3; 85025 ×3; 85610; 93005; 93017; 93306; 96361; 96372; 96374; 99285; A9500; G0378 ×2; J1650 ×3; J2270; J2785; J7030; Q9967